=== PATIENT | male | born 1975 | race Caucasian/White ===

== ENCOUNTER 2016-06-11 16:05 | Emergency (ER) | payer OTHER ==
[2016-06-11] MEDS ORDERED: ONDANSETRON 4 MG/2 ML VIAL ONE (16:46)
[2016-06-11] MEDS ORDERED: GLUCAGON,HUMAN RECOMBINANT 1 MG VIAL ONE (16:47)
[2016-06-11] MEDS ORDERED: ONDANSETRON 4 MG/2 ML VIAL IVP ONE (17:00)
[2016-06-11] MEDS ORDERED: GLUCAGON,HUMAN RECOMBINANT 1 MG VIAL IVP ONE (17:00)
--- NOTE | 2016-06-11 17:09 | UCPHY ---
H & P Time Seen by Provider: 06/11/16 16:27 Patient Type: New HPI/ROS: CHIEF COMPLAINT: Esophageal foreign body HISTORY OF PRESENT ILLNESS: Patient is a 40-year-old male who presents to the emergency department with food stuck in his esophagus. The patient states he has esophageal issues and spasms. He states this is genetic. Multiple members of his family have the same issue. 2 to 3 times a week he feels as though food gets stuck. He can usually clear this with water. At noon today he had a bite of wash tank tender. He felt this gets stuck in his lower esophagus. He has been unable to tolerate any liquids. He has been vomiting every 15-30 minutes. Mild discomfort. No other complaints. REVIEW OF SYSTEMS: My complete review of systems is negative except as mentioned in the HPI. Past Medical/Surgical History: Anxiety, Esophageal issues. The triage summary states the patient has an esophageal stricture. However the the patient has never been seen by a soaker or had a specific diagnosis. Smoking Status: Never smoked Physical Exam: Vitals noted GENERAL: mild acute distress, alert. Sitting up in bed HEENT: Eyes normal to inspection, normal pharynx, no visible foreign body. NECK: No thyromegaly, no lymphadenopathy, supple. RESPIRATORY: Clear to auscultation bilaterally, no rales, rhonchi or wheezing. CVS: Regular rate and rhythm, no rubs, murmurs, or gallops. ABDOMEN: Soft, nontender, nondistended, no organomegaly. No palpable mass BACK: Normal to inspection, no CVA tenderness. SKIN: Normal color, no rash, warm, dry. EXTREMITIES: normal. NEURO/PSYCH: Alert and oriented, normal mood and affect. Constitutional: Initial Vital Signs Heart Rate 79 06/11/16 16:13 Respiratory Rate 18 06/11/16 16:13 Blood Pressure 157/95 H 06/11/16 16:13 O2 Sat (%) 100 06/11/16 16:13 O2 Delivery Mode Room Air Allergies/Adverse Reactions: No Known Allergies Allergy (Verified 06/11/16 16:17) Home Medications: Medication Instructions Recorded Lexapro 10 MG 06/11/16 Restoril 15 MG (*) 06/11/16 Medical Decision Making ED Course/Re-evaluation: I discussed possible etiologies with the patient. An IV was placed. Patient was given glucagon 1 mg IV and Zofran 4 mg IV. On recheck the patient continued to have a foreign body sensation. No respiratory distress. I discussed the case with Dr. Mckeon. He recommends patient be transferred to [facility] emergency department. I discussed this with the patient and answered all his questions. The patient will be sent by prior vehicle. I felt the patient was safe for discharge with his IV in place. Differential Diagnosis: My differential includes but is not limited to esophageal foreign body, esophageal perforation, bronchial foreign body, tracheal foreign body Departure - Departure Disposition: Home, Routine, Self-Care Clinical Impression: Esophageal foreign body Qualifiers: Encounter type: initial encounter Qualified Code(s): T18.108A - Unspecified foreign body in esophagus causing other injury, initial encounter Condition: Good Instructions: Esophageal Foreign Body (ED) Additional Instructions: You are to go directly to the emergency department at [facility]. I discussed the case with Dr. Mckeon from Gastroenterology. He will see you once you arrive in the emergency department. Referrals: Jasmina Mckeon MD [Medical Doctor] - As per Instructions - PQRS PQRS Measurement: My PQRS negative my PQRS negative my PQRS negative my PQRS negative 134: Depression screening and followup, PRIME MD-PHQ2 (12 years and older) Over the last 2 weeks, how often have you been bothered by any of the following problems? 1. Feeling down, depressed, or hopeless? 2. Little interest or pleasure in doing things? Patient answered no to both 1 and 2 130: Documentation of medications. Reviewed all patient medications, doses, route and frequency. 226: Do you smoke? No.
[2016-06-11 18:03] VITALS: BP 149/87; TEMP 97.7
[2016-06-11] MEDS ORDERED: NS 1,000 ML IV ONE (18:42)
--- NOTE | 2016-06-11 18:42 | EDPHY ---
H & P Time Seen by Provider: 06/11/16 16:27 HPI/ROS: Chief complaint. Esophageal foreign body HPI. Patient is 40-year-old male transferred from [facility] with esophageal but foreign body that began after eating chicken for lunch. He has a history of frequent food getting stuck over the last 20 years but has never seen a reservation manager and had evaluated. He has vomited up some chicken but still feels that he cannot take a complete swallow and that he still has something stuck. He is breathing okay. He has been vomiting up saliva. No abdominal pain. Dr. Arizmendi at [facility] spoke to Dr. Mike Haynes who is planning to see the patient in the emergency department ROS Constitutional. no fever/chills, no weakness Eyes. no problems with vision ENT. no sore throat, no nasal drainage Cardiovascular. Chest fullness behind the sternum secondary to esophageal foreign body Respiratory. no shortness of breath, no cough Abdominal. no abdominal pain, no nausea/vomiting, no diarrhea . no problems urinating MS. no calf pain/swelling, no neck/back pain, no joint pain Skin. no rash Lymph. no swollen glands Neuro. no headache, no dizziness, no difficulty walking or with speech Past Medical/Surgical History: Healthy other than anxiety an apparent esophageal stricture or structural abnormality Social History: Single, nonsmoker, no alcohol Smoking Status: Never smoked Physical Exam: General Appearance: Alert well-developed male mild distress vital signs are stable Eyes: Pupils equal and round no pallor or injection. ENT, Mouth: Mucous membranes are moist. Respiratory: There are no retractions, lungs are clear to auscultation. Cardiovascular: Regular rate and rhythm. Gastrointestinal: Abdomen is soft and nontender, no masses, bowel sounds normal. Neurological: Awake and alert, sensory and motor exams grossly normal. Skin: Warm and dry, no rashes. Musculoskeletal: Neck is supple nontender. Extremities symmetrical, full range of motion. Psychiatric: Patient is oriented X 3, there is no agitation. Constitutional: Initial Vital Signs Heart Rate 79 06/11/16 16:13 Respiratory Rate 18 06/11/16 16:13 Blood Pressure 157/95 H 06/11/16 16:13 O2 Sat (%) 100 06/11/16 16:13 O2 Delivery Mode Room Air Allergies/Adverse Reactions: No Known Allergies Allergy (Verified 06/11/16 16:17) Home Medications: Medication Instructions Recorded Lexapro 10 MG 06/11/16 Restoril 15 MG (*) 06/11/16 Medical Decision Making Procedures: IV normal saline ED Course/Re-evaluation: I consulted and discussed case with Dr. Mckeon . He will come to see the patient in the emergency department in take the patient to procedural area I have discussed this plan with the patient. He expresses understanding and agreement Differential Diagnosis: This appears to be retained and incompletely past esophageal foreign body. Presumably the patient has some structural abnormality as he has had problems for a number of years. His airway seems to be patent any speaking in full sentences and without stridor. - Data Points Medications Given: Discontinued Medications Glucagon (Glucagen) 1 mg IVP EDNOW ONE Stop: 06/11/16 17:01 Last Admin: 06/11/16 17:00 Dose: 1 mg Ondansetron HCl (Zofran) 4 mg IVP EDNOW ONE Stop: 06/11/16 17:01 Last Admin: 06/11/16 17:00 Dose: 4 mg Departure - Departure Disposition: Home, Routine, Self-Care Clinical Impression: Esophageal foreign body Qualifiers: Encounter type: initial encounter Qualified Code(s): T18.108A - Unspecified foreign body in esophagus causing other injury, initial encounter Condition: Good Instructions: Esophageal Foreign Body (ED) Additional Instructions: You are to go directly to the emergency department at [facility]. I discussed the case with Dr. Mckeon from Gastroenterology. He will see you once you arrive in the emergency department. Referrals: Jasmina Mckeon MD [Medical Doctor] - As per Instructions
[2016-06-11] MEDS ORDERED: MIDAZOLAM 2 MG/2 ML VIAL ONE (18:43)
[2016-06-11] MEDS ORDERED: fentaNYL 100 MCG/2 ML INJ ONE (18:44)
[2016-06-11 19:03] VITALS: PULSE 76; RESP 16; O2SAT 98
--- NOTE | 2016-06-11 20:40 | GPN ---
[f rep st] PROCEDURE NOTE PROCEDURE: Upper endoscopy. INDICATIONS: Dysphagia and foreign body of the esophagus. COMPLICATIONS: None acutely. MEDICATIONS: 6 mg of Versed, 150 mcg of fentanyl. DESCRIPTION OF PROCEDURE: After informed consent was obtained, the patient was placed in the left l ateral decubitus position, and the forward viewing upper endoscope was advanced through the mouth in to the proximal duodenum. Retroflex views in the gastric cardia were obtained. The exam was limite d of the stomach due to some retained food contents. FINDINGS: 1. Normal esophagus with food impacted at the distal third. There was some inflammation and irrita tion noted around this food impaction. With gentle pressure from the upper endoscope, the food bolu s was delivered into the stomach. 2. There was minimal gastritis. 3. The gastric cardia and fundus were poorly visualized due to retained food. 4. The duodenum appeared normal. IMPRESSION AND RECOMMENDATIONS: Successful disimpaction of foreign body from the distal esophagus. I recommend the patient take a proton pump inhibitor daily. We will arrange a followup upper endos copy in 4 weeks in order to biopsy and dilate the esophagus. Meanwhile, I recommend the patient mila w his foods thoroughly and take them with liquids. /[id number]/MODL
--- NOTE | 2016-06-11 20:45 | GCON ---
[f rep st] CONSULTATION REFERRING PHYSICIAN: Rizwan Wild MD REASON FOR CONSULTATION: Food impaction and dysphagia. CHIEF COMPLAINT: Chest discomfort and difficulty swallowing. HPI: Briefly, the patient is a healthy 40-year-old male, who presented to the emergency room today after being unable to swallow. He reports he had a meal around lunchtime, and since that time, he h as had chest pain and chest discomfort, as well as difficulty swallowing and inability to tolerate h is own secretions. He reports a longstanding history of intermittent similar symptoms. He reports that his entire life he has had solid food dysphagia. Typically, he will be able to chew foods well and take them with liquids. Today, however, this was not the case. This is the first time he has ever had a clear food impaction. He reports no fevers, chills, or sweats. He has had no weight loss or weight gain. He reports no c hange in bowel habits. He reports he has many members of his family who have similar difficulties w ith swallowing. He has never undergone a GI workup for his symptoms. He does not take proton pump inhibitors daily. ALLERGIES: None. OUTPATIENT MEDICINES: A single anxiolytic medication that he could not remember the name of. SOCIAL HISTORY: He drinks alcohol occasionally, does not smoke or use drugs. FAMILY HISTORY: Significant for multiple family members with dysphagia, but he denies malignancy of the GI tract in his family. PAST MEDICAL HISTORY: Significant only for anxiety and intermittent dysphagia. REVIEW OF SYSTEMS: A complete 14-point review of systems was undertaken with the patient and is neg ative, except for those details described in the History of Present Illness. PHYSICAL EXAM: GENERAL: This is a well-developed male in no apparent distress. HEENT: His pupils are equal, round, reactive to light and accommodation. His sclerae are nonicteric. His oropharynx is clear. NECK: Supple without lymphadenopathy. HEART: Regular without murmur. ABDOMEN: Soft, nontender with normoactive bowel sounds. EXTREMITIES: Free of cyanosis, clubbing, and edema. His joints show no arthritis. SKIN: Warm and dry. NEURO: Nonfocal. PSYCH: Reveals normal mood and affect. LABORATORY: There is none for review. IMPRESSION AND RECOMMENDATIONS: The patient has had the occurrence of food impaction. He has a manjeet gstanding history of solid food dysphagia. We will plan urgent upper endoscopy to remove the foreig n body from his esophagus. /[id number]/MODL
== END 2016-06-11 19:03 | disposition home or self-care (01) ==
LOC: CED 16:05
PROC: 0DC58ZZ Extirpation of Matter from Esophagus, Via Natural or Artificial Opening Endoscopic (ICD-10-PCS; principal; 2016-06-11 19:00)
DX: T18.128A Food in esophagus causing other injury, initial encounter (principal); R13.10 Dysphagia, unspecified; K29.70 Gastritis, unspecified, without bleeding
CPT/HCPCS: 96361-PO; 96374; 96374-PO; 96375-PO; G0463-PO; J1610; J2250; J2405; J3010

== ENCOUNTER 2016-12-25 04:29 | Inpatient (IN) | payer OTHER ==
[2016-12-25] MEDS ORDERED: LIDOCAINE 2% VISCOUS 15 ML UDCUP PO ONE (05:05)
[2016-12-25] MEDS ORDERED: NS 1,000 ML IV ONE (05:05)
[2016-12-25] MEDS ORDERED: MAG HYDROX/AL HYDROX/SIMETH 30 ML UDCUP PO ONE (05:05)
[2016-12-25] MEDS ORDERED: LIDOCAINE 2% VISCOUS 15 ML UDCUP ONE (05:12)
[2016-12-25] MEDS ORDERED: MAG HYDROX/AL HYDROX/SIMETH 30 ML UDCUP ONE (05:12)
[2016-12-25] MEDS ORDERED: IOPAMIDOL (ISOVUE-300) 100 ML BTL ONE (05:17)
[2016-12-25 05:20] LABS: % IMMATURE GRANULYOCYTES 0.6 % (0.0-1.1); ABSOLUTE IMMATURE GRANULOCYTES 0.05 10^3/uL (0.00-0.10); ADD DIFF? NO; ADD MORPH? NO; ADD SCAN? NO; ATYPICAL LYMPHOCYTE FLAG 50 (0-99); FRAGMENT RBC FLAG 0 (0-99); HEMATOCRIT 45.8 % (40.0-51.0); HEMOGLOBIN 15.1 g/dL (13.7-17.5); LEFT SHIFT FLG 0 (0-99); LIPEMIA HEMOLYSIS FLAG 80 (0-99); MEAN CELL HEMOGLOBIN 31.1 pg (27.9-34.1); MEAN CELL VOLUME 94.2 fL (81.5-99.8); MEAN PLATELET VOLUME 9.3 fL (8.7-11.7); PLATELET CLUMPS FLAG 10 (0-99); PLATELET COUNT 239 10^3/uL (150-400); RED BLOOD CELL COUNT 4.86 10^6/uL (4.40-6.38); RED CELL DISTRIBUTION WIDTH 13.1 % (11.5-15.2)
[2016-12-25 05:32] LABS: POTASSIUM 4.1 mEq/L (3.5-5.2); SODIUM 143 mEq/L (134-144)
--- NOTE | 2016-12-25 05:32 | EDPHY ---
H & P HPI/ROS: HPI CHIEF COMPLAINT: Abdominal pain HISTORY OF PRESENT ILLNESS: This patient is a very pleasant male, he presents emergency room with abdominal pain. He states started approximately 45 minutes ago. Very severe and intense 10/10 epigastric and right upper quadrant. No associated nausea vomiting no shows diarrhea. Denies chest pain shortness of breath. Denies lower abdominal pain. This woke him from sleep. Past Medical History: GERD, esophageal stricture, "18 Colonic Polyps removed" Past Surgical History: No surgical history Social History: Denies daily use drugs alcohol tobacco products did have 1 glass of wine earlier this evening. Family History: Noncontributory ROS REVIEW OF SYSTEMS: A comprehensive 10 point review of systems is otherwise negative aside from elements mentioned in the history of present illness. Exam Constitutional triage nursing summary reviewed, vital signs reviewed, awake/ alert. Eyes normal conjunctivae and sclera, EOMI, PERRLA. HENT normal inspection, atraumatic, moist mucus membranes, no epistaxis, neck supple/ no meningismus, no raccoon eyes. Respiratory clear to auscultation bilaterally, normal breath sounds, no respiratory distress, no wheezing. Cardiovascular rate normal, regular rhythm, no murmur, no edema, distal pulses normal. Gastrointestinal soft, mild tender palpation epigastric and mid abdomen,, no rebound, no guarding, normal bowel sounds, no distension, no pulsatile mass. Genitourinary no CVA tenderness. Musculoskeletal no midline vertebral tenderness, full range of motion, no calf swelling, no tenderness of extremities, no meningismus, good pulses, neurovascularly intact. Skin pink, warm, & dry, no rash, skin atraumatic. Neurologic awake, alert and oriented x 3, AAOx3, moves all 4 extremities equally, motor intact, sensory intact, CN II-XII intact, normal cerebellar, normal vision, normal speech. Psychiatric normal mood/affect. Heme/Lymph/Immune no lymphadenopathy. Differential diagnosis includes but is not limited to and in no particular order : Bowel obstruction, appendicitis, gallbladder disease, diverticulitis, colitis , enteritis, perforated viscus, gastritis, GERD, esophagitis, urinary tract infection, pyelonephritis, kidney stones Medical Decision Making: Plan for this patient IV establishment with IV fluid bolus, GI cocktail, chest x-ray two view, EKG, 1 L normal saline bolus, CT scan abdomen pelvis with IV contrast, abdominal blood work, urinalysis re-evaluate. Re-evaluation: EKG interpretation by me on record in [facility] system. Impression time of EKG 4:50 a.m., sinus rhythm rate of 80 no acute ischemic changes specifically no ST elevation ST depression T-wave abnormalities. No prolonged intervals. Unremarkable EKG CT scan of the abdomen pelvis with IV contrast The results of the study are partial small-bowel obstruction The study was read by jejunum and ileum dilation. No free air no feeling. I viewed the images myself on the PACS system. [id number]: Did consult General surgery Dr. Bryant. Plan will be for admission to the hospitalist service for partial small-bowel obstruction. At this time I do not feel the patient needs NG tube. He is not vomiting he is not retching his pain is controlled at this time. Patient be admitted to the hospital service for partial, small-bowel obstruction. Additional information reported at 6:08 a.m. patient states that he has had esophageal stricture, and 18 polyps removed his colon. Source: Patient - Personal History Current Tetanus/Diphtheria Vaccine: Unsure Current Tetanus Diphtheria and Acellular Pertussis (TDAP): Unsure - Medical/Surgical History Hx Asthma: No Hx Chronic Respiratory Disease: No Hx Diabetes: No Hx Cardiac Disease: No Hx Renal Disease: No Hx Cirrhosis: No Hx Alcoholism: No Hx HIV/AIDS: No Hx Splenectomy or Spleen Trauma: No Other PMH: anxiety, esophagus stricture - Social History Smoking Status: Never smoked Constitutional: Initial Vital Signs Temperature (C) 36.5 C 12/25/16 04:32 Heart Rate 82 12/25/16 04:32 Respiratory Rate 20 12/25/16 04:32 Blood Pressure 151/117 H 12/25/16 04:32 O2 Sat (%) 100 12/25/16 04:32 O2 Delivery Mode Room Air Allergies/Adverse Reactions: No Known Allergies Allergy (Verified 06/11/16 16:17) Home Medications: Medication Instructions Recorded Acetaminophen [Tylenol 325mg (*)] 325 mg PO DAILY PRN 12/25/16 Medical Decision Making - Data Points Laboratory Results: Laboratory Results 12/25/16 04:53 12/25/16 04:53 Medications Given: Hydromorphone HCl (Dilaudid) 0.2 - 0.4 mg IVP Q2HRS PRN PRN Reason: Pain, Severe Unable to Take PO Stop: 01/04/17 08:43 Last Admin: 12/25/16 18:51 Dose: 0.2 mg Throat Lozenges (Cepacol Lozenge) 1 ea PO PRN PRN PRN Reason: Sore Throat Stop: 06/23/17 12:45 Last Admin: 12/25/16 20:41 Dose: 1 ea Discontinued Medications Al Hydroxide/Mg Hydroxide (Maalox Susp) 30 ml PO EDNOW ONE Stop: 12/25/16 05:06 Last Admin: 12/25/16 05:10 Dose: 30 ml Hydromorphone HCl (Dilaudid) 0.5 mg IVP EDNOW ONE Stop: 12/25/16 06:47 Last Admin: 12/25/16 06:50 Dose: 0.5 mg Sodium Chloride (Ns) 1,000 mls @ 0 mls/hr IV ONCE ONE PRN Reason: Wide Open Stop: 12/25/16 05:06 Last Admin: 12/25/16 05:10 Dose: 1,000 mls Lidocaine (Lidocaine 2% Viscous) 5 ml PO EDNOW ONE Stop: 12/25/16 05:06 Last Admin: 12/25/16 05:10 Dose: 5 ml Departure - Departure Disposition: [facility] Inpatient Acute Clinical Impression: SBO (small bowel obstruction) Condition: Fair
[2016-12-25 05:33] LABS: ALANINE AMINOTRANSFERASE 97 IU/L (21-72); ALBUMIN 4.6 g/dL (3.5-5.0); ALKALINE PHOSPHATASE 38 IU/L (38-126); ASPARTATE AMINOTRANSFERASE 60 IU/L (17-59); BILIRUBIN,TOTAL 0.5 mg/dL (0.1-1.4); CALCIUM 9.4 mg/dL (8.5-10.4); CARBON DIOXIDE 25 mEq/l (22-31); CREATININE 1.1 mg/dL (0.7-1.3); GLOMERULAR FILTRATION RATE > 60; GLUCOSE 101 mg/dL (70-100); TOTAL PROTEIN 7.8 g/dL (6.3-8.2)
--- NOTE | 2016-12-25 05:39 | CPEKG ---
Heart Rate: 80 RR Interval: 750 P-R Interval: 176 QRSD Interval: 94 QT Interval: 364 QTC Interval: 420 P Shickley: 49 QRS Shickley: 61 T Wave Shickley: 35 EKG Severity - NORMAL ECG - EKG Impression: SINUS RHYTHM Electronically Signed By: David Samaniego 25-Dec-2016 07:17:35
[2016-12-25 05:44] LABS: TROPONIN I < 0.012 ng/mL (0.000-0.034)
[2016-12-25 06:14] LABS: ANION GAP 14 mEq/L (8-16)
[2016-12-25 06:15] LABS: CHLORIDE 104 mEq/L (97-110)
[2016-12-25] MEDS ORDERED: ACETAMINOPHEN 325 MG TAB PO PRN (06:30)
[2016-12-25] MEDS ORDERED: ONDANSETRON DISINTEGRATING 4 MG TAB PO PRN (06:30)
[2016-12-25] MEDS ORDERED: ONDANSETRON 4 MG/2 ML VIAL IVP PRN (06:30)
[2016-12-25] MEDS ORDERED: HYDROmorphONE/DILAUDID 1 MG/ML SYR IVP ONE (06:46)
--- NOTE | 2016-12-25 07:14 | GHP ---
[f rep st] HISTORY AND PHYSICAL DATE OF ADMISSION: 12/25/2016 CHIEF COMPLAINT: Abdominal pain, SBO HISTORY OF PRESENT ILLNESS: The patient is a 41-year-old male with a history of colonic polyps in his 20s, status post abdominal surgery as well as esophageal stricture from what he describes, presenting with acute onset of abdominal pain this evening. It awoke him from bed. It was in his epigastric region. It was very severe and cramping. He denies any associated nausea, vomiting, or diarrhea. Denies constipation. No chest pain, shortness of breath. The patient reports a chronic cough and choking on things. He did have his esophagitis dilated, which has improved the choking sensation. He did have meatballs for dinner but states that he chewed them well. REVIEW OF SYSTEMS: I completed a 10-point review of system, is negative except as noted in HPI. PAST MEDICAL HISTORY: GERD, esophageal stricture that was dilated in August 2016, history of colonic polyps, per his report says was cancerous, but these were removed. PAST SURGICAL HISTORY: Again, polyp removal as stated above with an abdominal surgery. SOCIAL HISTORY: Lives in [place], has 2 children. Owns a [employer]. No tobacco or illicits. Drinks a glass of wine nightly. FAMILY HISTORY: Maternal grandpa with an VT, maternal grandmother with diabetes. MEDICATIONS: Home medications are Restoril and Lexapro. ALLERGIES: None. PHYSICAL EXAMINATION: VITAL SIGNS: Temperature 36.5, blood pressure 151/117, heart rate 82, respirations 20, 100% on room air. GENERAL: The patient is lying in bed, in no acute distress. HEENT: PERRLA. EOMI. Oropharynx clear. CV: Regular rate and rhythm. No murmurs, gallops, rubs. LUNGS: Clear to auscultation bilaterally. GI: Abdomen is soft, minimal epigastric tenderness. No rebound or guarding. Hyperactive bowel sounds. No suprapubic tenderness. MUSCULOSKELETAL: 5/5 upper and lower extremities. NEURO: 2 through 12 intact. LABS: WBC 8, hemoglobin 15, hematocrit 45, platelets 239. Lactate 1.7. Sodium 141, potassium 4.1, chloride 104, anion gap 14, creatinine 1.1, glucose 101. AST 60, ALT 97, alkaline phosphatase 38. Troponin less than 0.012. Total protein 7.8, albumin 4.6, lipase 432. EKG is personally reviewed by me. Normal sinus rhythm. CT abdomen and pelvis, partial small bowel obstruction right mid abdomen and right lower quadrant. No ascites. ASSESSMENT AND PLAN: 1. Small bowel obstruction: had prior colonic polyps and abdominal surgery, so possibly adhesions. Not having nausea, vomiting. Will hydrate with IV fluids. Pain control. Obtain small-bowel follow-through and surgical consult. Ensure electrolytes are within normal. 2. History of colonic polyps, cancer per patient. This was in his 20s. He is unclear of full details. We will start with a small bowel through, may need a repeat colonoscopy. 3. Abdominal pain, secondary to small-bowel obstruction, p.r.n. IV opioids. 4. Diet: N.p.o., normal saline. DISPOSITION: Patient warrants inpatient admission given SBO, warranting further imaging and surgical consult. /[id number]/MODL MTDD
[2016-12-25] MEDS ORDERED: HYDROmorphONE/DILAUDID 1 MG/ML SYR IVP PRN (08:44)
--- NOTE | 2016-12-25 12:05 | SOAPPROG ---
JONATHAN Progress Note Assessment/Plan: Assessment: full dictation pending 1) Partial sbo -etiology recent GI virus vs ileus from pancreatitis. Doubt will need surgical intervention for SBO 2) Low grade pancreatitis - no comment on pancreas on CT scan. 3) Ordered US of gallbladder due to RUQ pain 4) Follow up with Dr. Mckeon as outpatient due to family and personal history of numerous colon polyps 5) Will follow Plan: 12/25/16 12:03 Objective: Vital Signs Temp Pulse Resp BP Pulse Ox 36.7 C 79 18 134/96 H 98 12/25/16 08:07 12/25/16 08:07 12/25/16 08:07 12/25/16 08:07 12/25/16 08:07 12/24/16 12/25/16 12/26/16 05:59 05:59 05:59 Intake Total 1000 Balance 1000 ICD10 Worksheet Patient Problems: Problems Problem Status Onset SBO (small bowel obstruction) Acute
[2016-12-25] MEDS: CEPACOL LOZENGE PO PRN ×3 (14:10→20:41)
--- NOTE | 2016-12-25 17:32 | GCON ---
[f rep st] CONSULTATION DATE OF CONSULTATION: 12/25/2016 REQUESTING PHYSICIAN: Dr. Mateo Samaniego. CHIEF COMPLAINT: Abdominal pain. HISTORY OF PRESENT ILLNESS: Mckay Scott is a 41-year-old male who presents with abdominal pain to the ER approximately 4 a.m. this morning. At the time of presentation, his epigastric pain was 10/10. He states it is now a 3/10. After he was given a GI cocktail in the ER, he states the pain is constant in the epigastric region. He denies any nausea, vomiting, or diarrhea. He states his last bowel movement was at approximately 9 p.m. last night. He does state that the bowel movement was greasy or oily at the time. He also reports some chills last night and a current head cold along with a recent bout of gastroenteritis following a trip back from [facility]. He currently denies any fever or chills or feelings of bloating or rigidity in the abdomen. He also reports a past medical history of polyps in his 20s which were removed with a colonoscopy. He reports he has not had a colonoscopy since his 20s. He states he was not worked up for any hereditary polyposis disorders and he does not know if he has one. PAST MEDICAL HISTORY: Polyps in the 20s. PAST SURGICAL HISTORY: None FAMILY HISTORY: Colon cancer in a grandfather on the father's side and colon polyps from his father's side. SOCIAL HISTORY: He reports 1-2 drinks per night, usually wine with his partner. He does not use tobacco products. OBJECTIVE: GENERAL: A well-developed, well-nourished adult male in no acute distress, lying in the hospital bed. SKIN: Warm, dry. HEENT: Head is normocephalic, atraumatic. Pupils are equal and round. Hearing grossly intact. Mucous membranes moist. LUNGS: Clear to auscultation bilaterally. No increased work of breathing. HEART: Regular rate. No peripheral edema. GI: Abdomen is tender to palpation in the right upper quadrant and epigastric region with no rebound or guarding. It is nondistended with negative Riley sign. Bowel sounds present. NEURO: Grossly intact. PSYCH: Normal affect and mood. Results reviewed. CT showed partial bowel obstruction. Lab showed elevated lipase at 432. ASSESSMENT: 41 yo with abdominal pain. Differential includes acute pancreatitis, partial small bowel obstruction, symptomatic cholelithiasis. PLAN: Agree with IV fluids and NPO. I ordered an ultrasound of the right upper quadrant due to pain to palpation. It was negative. Upper GI did not show bowel obstruction. We recommended that he follow up with Dr. Mckeon for repeat outpatient colonoscopy /[id number]/MODL MTDD
[2016-12-26] MEDS: NS 1,000 ML IV SCH ×2 (01:57→12:40)
[2016-12-26 04:19] VITALS: TEMP 99
[2016-12-26] MEDS: CEPACOL LOZENGE PO PRN (04:51)
[2016-12-26 08:48] VITALS: BP 145/94; PULSE 83; RESP 18; O2SAT 93
--- NOTE | 2016-12-26 10:04 | SOAPPROG ---
SOAP Progress Note Assessment/Plan: Assessment: 39 M with low grade pancreatitis Plan: Neuro: pain controlled FEN: advance diet. GI: Stable. No signs of SBO on small bowel follow through. US of gallbladder was negative. Lipase is improved from 432 yesterday to 91 today, this along with decreased pain and absence of other sxs would suggest pancreatitis is resolving. Surgery will sign off. Do not hesitate to call with questions or concerns. Recommend follow up with Dr. Mckeon after discharge due to family and personal hx of numerous colon polyps. Subjective: Pt reports he is doing well. He still reports some mild pain but says it is nothing like yesterday. He has passed gas today, no BM yet. 12/25/16 12:03 12/26/16 10:02 12/26/16 10:05 12/26/16 10:11 12/26/16 10:46 Objective: Vital Signs Temp Pulse Resp BP Pulse Ox 37.2 C 83 18 145/94 H 93 12/26/16 04:19 12/26/16 08:47 12/26/16 08:47 12/26/16 08:47 12/26/16 08:47 12/25/16 12/26/16 12/27/16 05:59 05:59 05:59 Intake Total 2908 Balance 2908 Physical Exam - Physical Exam General Appearance: WD/WN, alert, no apparent distress EENT: PERRL/EOMI, No scleral icterus (R), No scleral icterus (L), No hearing deficit Respiratory: lungs clear, normal breath sounds Cardiac/Chest: regular rate, rhythm, No edema Abdomen: normal bowel sounds, non-tender, soft, No distended Male Genitalia: deferred Rectal: deferred Skin: normal color, warm/dry Neuro/Psych: no motor/sensory deficits, normal mood/affect ICD10 Worksheet Patient Problems: Problems Problem Status Onset SBO (small bowel obstruction) Acute
[2016-12-26] MEDS ORDERED: MBX SOLN 30 ML BOTTLE PO PRN (12:09)
--- NOTE | 2016-12-26 13:11 | PDDCSUM ---
Discharge Summary Discharge Summary: Dates of service 12/25-12/26/16 Discharge dx: # partial SBO # elevated lipase # abdominal pain # hx of colon polyps Consultations: general surgery Procedures: abd ct (c/w partial SBO), abd us, upper gi w/sbft Hospital course by problem: # partial sbo: in setting of recent severe likely viral gastroenteritis and presumed post viral ileus, resolved quickly and able to tolerate po without significant pain or n/v. Surgery evaluated and agree with conservative mgmt # elevated lipase: mildly elevated and without s/s of pancreatitis, likely related to recent viral illness # abdominal pain: in setting of above and completely resolved # hx of colon polyps: recommend f/u with GI for OP colonoscopy for ongoing surveillance DC home f/u with PCP and GI of [facility] > 35 minutes spent in dc more than half in coordination of care and counseling and family regarding dx and f/u care plans
== END 2016-12-26 14:18 | disposition home or self-care (01) | DRG 390 ==
LOC: F1N 08:00
PROVIDERS: ADMIT Internal Medicine; ATTEND Internal Medicine
DX: K56.60 Unspecified intestinal obstruction (principal); K21.9 Gastro-esophageal reflux disease without esophagitis; R79.89 Other specified abnormal findings of blood chemistry; Z86.010 Personal history of colon polyps
CPT/HCPCS: 82947-QW; J1170; Q9967

== ENCOUNTER 2017-04-02 10:45 | Emergency (ER) | payer OTHER ==
[2017-04-02 11:03] VITALS: TEMP 98.6; O2SAT 95
[2017-04-02] MEDS ORDERED: NS 1,000 ML IV ONE (11:26)
[2017-04-02 11:53] LABS: % IMMATURE GRANULYOCYTES 0.2 % (0.0-1.1); ABSOLUTE IMMATURE GRANULOCYTES 0.01 10^3/uL (0.00-0.10); ADD DIFF? NO; ADD MORPH? NO; ADD SCAN? NO; ATYPICAL LYMPHOCYTE FLAG 0 (0-99); FRAGMENT RBC FLAG 0 (0-99); HEMATOCRIT 44.9 % (40.0-51.0); HEMOGLOBIN 15.3 g/dL (13.7-17.5); LEFT SHIFT FLG 0 (0-99); LIPEMIA HEMOLYSIS FLAG 90 (0-99); MEAN CELL HEMOGLOBIN 30.5 pg (27.9-34.1); MEAN CELL HEMOGLOBIN CONCENTR. 34.1 g/dL (32.4-36.7); MEAN CELL VOLUME 89.6 fL (81.5-99.8); PLATELET CLUMPS FLAG 0 (0-99); PLATELET COUNT 252 10^3/uL (150-400); RED BLOOD CELL COUNT 5.01 10^6/uL (4.40-6.38); RED CELL DISTRIBUTION WIDTH 12.4 % (11.5-15.2)
[2017-04-02 11:54] LABS: COLOR YELLOW; LEUKOCYTE ESTERASE,URINE NEGATIVE (NEGATIVE); NITRITE,URINE NEGATIVE (NEGATIVE)
[2017-04-02 12:09] LABS: ALANINE AMINOTRANSFERASE 59 IU/L (21-72); ALBUMIN 4.4 g/dL (3.5-5.0); ALKALINE PHOSPHATASE 43 IU/L (38-126); ANION GAP 16 mEq/L (8-16); ASPARTATE AMINOTRANSFERASE 35 IU/L (17-59); BILIRUBIN,TOTAL 0.6 mg/dL (0.1-1.4); CALCIUM 9.8 mg/dL (8.5-10.4); CARBON DIOXIDE 23 mEq/l (22-31); CHLORIDE 105 mEq/L (97-110); GLOMERULAR FILTRATION RATE > 60; GLUCOSE 93 mg/dL (70-100); POTASSIUM 4.5 mEq/L (3.5-5.2); SODIUM 144 mEq/L (134-144); TOTAL PROTEIN 7.6 g/dL (6.3-8.2)
--- NOTE | 2017-04-02 12:32 | EDPHY ---
H & P Stated Complaint: right sided abd pain for 2 months, diarrhea, nights sweats Time Seen by Provider: 04/02/17 11:10 HPI/ROS: This patient complains of chronic abdominal pain. He explains that for 2 months he has had right mid abdominal pain slightly above the umbilicus and on the right side. He he states that this pain has been achy in nature somewhat dull typically [id number] intensity but he has noticed some slight tenderness to the same area over the past 2 days. He feels that he developed the symptoms after a diarrheal episode that occurred while visiting [place]. That episode was then complicated by pancreatitis his admitted to [facility] for 2 days for his pancreatitis that resolved with hydration. He notes no clear exacerbating or alleviating factors. He states that he decided to come in today because of the associated tenderness to touch. He drove himself here by private vehicle for evaluation. ROS: No fevers or chills. No significant fatigue or other constitutional symptoms. HEENT: No URI symptoms or other HEENT complaints Pulmonary: No cough shortness of breath. Cardiovascular: No lightheadedness or chest pain. No lower extremity swelling. GI: No abdominal distension. He does report loose stools for the past 2 days having 10 watery stools yesterday but only 1 stool so far today that is attending toward a more regular consistency per patient. No bloody stools. He has had increased flatus over the last 2 days in addition. : No testicular pain or swelling. No dysuria. No urethral discharge. No flank pain. Musculoskeletal: No recent injuries. Endocrine: No complaints Complete review of symptoms is otherwise negative Source: Patient Exam Limitations: No limitations - Medical/Surgical History Hx Asthma: No Hx Chronic Respiratory Disease: No Hx Diabetes: No Hx Cardiac Disease: No Hx Renal Disease: No Hx Cirrhosis: No Hx Alcoholism: No Hx HIV/AIDS: No Hx Splenectomy or Spleen Trauma: No Other PMH: anxiety, esophagus stricture, colon polyps, pancreatitis. The negative HIV test within the last year - Family History Significant Family History: No pertinent family hx - Social History Smoking Status: Never smoked Alcohol Use: Occasionally (The patient reports he has 3-4 glasses of wine per week on average he has not had any alcohol for the past 2 weeks due to abdominal symptoms this) Drug Use: None Additional Social History: The patient is homosexual. - Physical Exam Exam: General Appearance: Alert, no distress. Eyes: Pupils equal and round no pallor or injection. ENT, Mouth: Mucous membranes moist. Respiratory: There are no retractions, lungs are clear to auscultation. Cardiovascular: Regular rate and rhythm. No murmur gallop or rub Gastrointestinal: Normoactive, soft, minimal right mid belly tenderness slightly inferior to the right upper quadrant with no guarding or rebound. No abdominal distension. No organomegaly. : No testicular tenderness. Back: No CVA tenderness Neurological: GCS 15 Skin: Warm and dry, no rashes. Musculoskeletal: Neck is supple nontender. Extremities are symmetrical, full range of motion. Psychiatric: Mood and affect normal DIFFERENTIAL DIAGNOSIS: After history and physical exam differential diagnosis was considered for hepatitis, cholecystitis, food intolerance, viral illness, constipation, anxiety with somatic symptoms Constitutional: Initial Vital Signs Temperature (C) 37.0 C 04/02/17 10:59 Heart Rate 88 04/02/17 10:59 Respiratory Rate 18 04/02/17 10:59 Blood Pressure 157/97 H 04/02/17 10:59 O2 Sat (%) 95 04/02/17 10:59 O2 Delivery Mode Room Air Allergies/Adverse Reactions: No Known Allergies Allergy (Verified 04/02/17 10:57) Home Medications: Medication Instructions Recorded HYOSCYAMINE SULFATE [LEVSIN-SL] 0.125 - 0.25 mg SL TID PRN #20 04/02/17 [email or web address] Medical Decision Making ED Course/Re-evaluation: IV Patient is offered Levsin but declines stating that does not feel like crampy pain to him. Labs: Normal CBC, comp metabolic panel, lipase and urinalysis. Patient was unable to provide a stool sample for testing. Discussion: Patient with abdominal pain of unclear etiology but a benign exam and benign workup today. With normal labs and benign exam, no evidence of pancreatitis, hepatitis, cholecystitis or other concerning findings. I encouraged him to try holding off on any milk products considering lactose intolerance. Patient remains apprehensive about his symptoms but given initial negative workup. I find no indication for further testing at this time encouraged him to follow up with her primary care physician. We provided an outpatient primary care physician on-call phone number for him to facilitate this-Dr. Saba. - Data Points Laboratory Results: Laboratory Results 04/02/17 11:13 04/02/17 11:13 Medications Given: Discontinued Medications Sodium Chloride (Ns) 1,000 mls @ 0 mls/hr IV EDNOW ONE; Wide Open PRN Reason: Protocol Stop: 04/02/17 11:27 Last Admin: 04/02/17 11:51 Dose: 1,000 mls Departure - Departure Disposition: Home, Routine, Self-Care Clinical Impression: Acute diarrhea, Chronic abdominal pain Condition: Good Instructions: Loperamide (By mouth), Hyoscyamine (By mouth), Acute Diarrhea (ED ), Acute Abdominal Pain (DC) Additional Instructions: Diagnosis: 1. Acute diarrhea 2. Chronic abdominal pain Your labs today are normal. Plan: Imodium if needed for diarrhea Drink plenty fluids Consider cutting dairy to see if this helps with your symptoms. Monitor any notable dietary correlation between white reading in the onset of symptoms Consider Tylenol or Levsin if needed for abdominal pains. Follow up with Dr. Saba for any ongoing symptoms. Return for any significant worsening despite the treatment plan. Referrals: NONE *PRIMARY CARE P,. [Primary Care Provider] - As per Instructions Rosalio Saba MD [[facility] [place] Provider] - As per Instructions Prescriptions: HYOSCYAMINE SULFATE [LEVSIN-SL] 0.125 - 0.25 mg SL TID PRN #20 tab.subl PRN Reason: abdominal cramping
[2017-04-02 13:15] VITALS: BP 127/86; PULSE 78; RESP 16
== END 2017-04-02 12:59 | disposition home or self-care (01) ==
LOC: CED 10:45
DX: R19.7 Diarrhea, unspecified (principal); R10.11 Right upper quadrant pain; G89.29 Other chronic pain; E86.9 Volume depletion, unspecified
CPT/HCPCS: 80053-PO; 81003-PO; 83690-PO; 85025-PO

== ENCOUNTER → 2017-04-09 | Outpatient (CLI) | payer OTHER ==
[~2017-04-09] MED LIST: IOPAMIDOL (ISOVUE-300) 100 ML BTL ONE
== END ==
LOC: CIMAGING 12:58
PROVIDERS: ATTEND Internal Medicine Gastroenterology
DX: R10.10 Upper abdominal pain, unspecified (principal); R10.31 Right lower quadrant pain
CPT/HCPCS: 74177-PO; Q9967